=== PATIENT | male | born 1965 ===

== ENCOUNTER 2022-05-20 10:02 | Observation (INO) ==
[2022-05-20] MEDS ORDERED: Lactated Ringers 1000 ml BAG 1,000 ML IV ONE (10:58)
[2022-05-20 11:07] LABS: ABS Lymphocytes 1.1 10^3/ul (1.0-4.8); ABS Monocytes 0.5 10^3/ul (0-0.8); ABS Neutrophils 9.5 10^3/ul (1.5-7.7); Eosinophil % 0.1 %; Hematocrit 44 % (42-52); Hemoglobin 14.7 g/dL (14.0-18.0); Lymphocyte % 9.5 %; Mean Corpuscular HGB Conc 33 g/dL (31-36); Mean Corpuscular Hemoglobin 31 pg (27-31); Mean Corpuscular Volume 93 fL (80-94); Mean Platelet Volume 8.1 fL (7.4-10.4); Platelet Count 213 10^3/uL (150-450); Red Blood Count 4.73 10^6 /uL (4.18-5.48); Red Cell Distribution Width 13 % (10-15); White Blood Count 11.1 10^3/uL (3.5-10.8)
[2022-05-20 11:41] LABS: Anion Gap 8 mmol/L (2-11); CO2 Carbon Dioxide 28 mmol/L (22-32); Calcium 9.9 mg/dL (8.6-10.3); Chloride 102 mmol/L (101-111); Potassium 4.2 mmol/L (3.5-5.0); Sodium 138 mmol/L (135-145)
[2022-05-20 11:47] LABS: Blood Urea Nitrogen 16 mg/dL (6-24); C Reactive Protein < 1.00 mg/L (<8.01); Glucose 116 mg/dL (70-100); eGFR CKD-EPI 74.7 (>60)
[2022-05-20] MEDS ORDERED: Ondansetron 4 mg VIAL 2 MG/ML 2 ml VIAL IV ONE (12:13)
[2022-05-20] MEDS ORDERED: Morphine 4 MG/ML VIAL (1 ml) IV ONE (12:13)
[2022-05-20] MEDS ORDERED: IOHEXOL IV ONE (14:10)
[2022-05-20] MEDS ORDERED: NS 0.9% 1000 ml BAG 1,000 ML IV ONE (14:16)
[2022-05-20 16:36] LABS: Urine Appearance Clear; Urine Bilirubin Negative (Negative); Urine Color Yellow; Urine Glucose Negative (Negative); Urine Ketones Trace (Negative); Urine Nitrite Negative (Negative); Urine Protein Negative (Negative); Urine Specific Gravity 1.025 (1.005-1.030); Urine Urobilinogen 0.2 (Negative) (Negative)
[2022-05-20 16:44] LABS: Urine Bacteria Absent (Absent); Urine Red Blood Cell 2+(6-10/hpf) (Absent); Urine Squamous Epithelial Cell Present (Absent); Urine White Blood Cell Absent (Absent)
[2022-05-20] MEDS ORDERED: cefTRIAXone 2 gm/50 mL D5W 2 GM/50 ML BAG IV ONE ×2 (17:36)
[2022-05-20] MEDS ORDERED: NS 0.9% IV SCH (18:15)
[2022-05-21] MEDS: NS 0.9% 1000 ml BAG 1,000 ML IV SCH ×2 (02:07→06:07)
[2022-05-21 08:21] VITALS: BP 127/73
== END 2022-05-21 07:55 | disposition home or self-care (01) ==
LOC: ED 10:02 → EDHOLD 10:02 → SSU 15:22
PROVIDERS: ADMIT Hospitalist; ATTEND Hospitalist